=== PATIENT | female | born 1960 | race Native Hawaiian/Other Pacific Islander ===

== ENCOUNTER 2017-08-21 13:40 | Outpatient (CLI) | payer OTHER ==
[~2017-08-21 13:40] MED LIST: GABA300C2 PO; HYDR200T3 PO; LEVO0.0723 PO; PHENTERMINE37.5 MG OR
[2017-08-22 14:19] LABS: PLATELET COUNT 216 K/uL (152-353)
[2017-08-22 14:39] LABS: POTASSIUM 3.9 mmol/L (3.6-5.2)
== END 2017-08-21 16:00 | disposition home or self-care (01) ==
LOC: LABW 13:40
DX: M35.01 Sjogren syndrome with keratoconjunctivitis (principal)
CPT/HCPCS: 36415; 80053; 85027; 85651; 86140

== ENCOUNTER 2017-11-12 08:04 | Outpatient (CLI) | payer OTHER ==
[2017-11-12 11:21] LABS: PLATELET COUNT 219 K/uL (152-353)
[2017-11-12 11:37] LABS: POTASSIUM 4.2 mmol/L (3.6-5.2)
== END 2017-11-12 19:02 | disposition home or self-care (01) ==
LOC: LABW 08:04
PROVIDERS: Podiatrist
DX: Z01.810 Encounter for preprocedural cardiovascular examination (principal); Z01.811 Encounter for preprocedural respiratory examination; Z01.812 Encounter for preprocedural laboratory examination
CPT/HCPCS: 36415; 80053; 85027; 93005

== ENCOUNTER 2018-01-03 11:54 | Outpatient (CLI) | payer OTHER ==
[2018-01-03 12:50] LABS: PLATELET COUNT 213 K/uL (152-353)
[2018-01-03 13:37] LABS: POTASSIUM 3.5 mmol/L (3.6-5.2)
== END 2018-01-03 12:54 | disposition home or self-care (01) ==
LOC: LABW 11:54
PROVIDERS: Nurse Practitioner Family
DX: I78.1 Nevus, non-neoplastic (principal); M35.01 Sjogren syndrome with keratoconjunctivitis
CPT/HCPCS: 80053; 82085; 82550; 83516; 85027; 85651; 86039; 86140; 86225; 86235

== ENCOUNTER 2018-01-14 15:24 | Outpatient (CLI) | payer OTHER | END 2018-01-14 20:04 | disposition home or self-care (01) | LOC: LAB 15:24 | DX: I78.1 Nevus, non-neoplastic (principal) | CPT/HCPCS: 82575 ==

== ENCOUNTER 2018-06-19 07:57 | Outpatient (CLI) | payer OTHER ==
[2018-06-19 08:40] LABS: PLATELET COUNT 198 K/uL (152-353)
== END 2018-06-19 21:10 | disposition home or self-care (01) ==
LOC: LABW 07:57
PROVIDERS: Internal Medicine Rheumatology
DX: H16.223 Keratoconjunctivitis sicca, not specified as Sjogren's, bilateral (principal); M06.4 Inflammatory polyarthropathy; Z79.899 Other long term (current) drug therapy
CPT/HCPCS: 80053; 82180; 82784; 82785; 83516; 85027; 85651; 86140; 86160; 86255; 86704; 86706; 86803; 87340

== ENCOUNTER 2018-06-23 08:14 | Outpatient (CLI) | payer OTHER | END 2018-06-23 19:12 | disposition home or self-care (01) | LOC: LAB 08:14 | DX: H16.223 Keratoconjunctivitis sicca, not specified as Sjogren's, bilateral (principal); M06.4 Inflammatory polyarthropathy; Z79.899 Other long term (current) drug therapy | CPT/HCPCS: 82180 ==

== ENCOUNTER 2018-12-29 14:18 | Outpatient (CLI) | payer OTHER | END 2018-12-29 20:07 | disposition home or self-care (01) | LOC: LABW 14:18 | DX: E03.9 Hypothyroidism, unspecified (principal) | CPT/HCPCS: 36415; 82306; 84439; 84443 ==

== ENCOUNTER 2019-09-02 14:00 | Outpatient (CLI) | payer OTHER | END 2019-09-02 19:53 | disposition home or self-care (01) | LOC: MAMMO 14:00 | DX: Z12.31 Encounter for screening mammogram for malignant neoplasm of breast (principal) ==

== ENCOUNTER 2020-09-22 14:43 | Outpatient (CLI) | payer OTHER | END 2020-09-22 19:07 | disposition home or self-care (01) | LOC: MAMMO 14:43 | PROVIDERS: ATTEND Nurse Practitioner Family | DX: Z12.31 Encounter for screening mammogram for malignant neoplasm of breast (principal) ==

== ENCOUNTER → 2020-12-14 11:39 | Outpatient (CLI) | payer OTHER | END | disposition home or self-care (01) | LOC: RAD 11:39 | PROVIDERS: ATTEND Nurse Practitioner Family | DX: R05 Cough (principal); R06.02 Shortness of breath ==

== ENCOUNTER 2021-04-12 15:20 | Outpatient (CLI) | payer OTHER | END 2021-04-12 23:05 | disposition home or self-care (01) | LOC: CT 15:20 | PROVIDERS: ATTEND Otolaryngology Otolaryngology/Facial Plastic Surgery | DX: J32.0 Chronic maxillary sinusitis (principal); M27.61 Osseointegration failure of dental implant; G50.1 Atypical facial pain ==

== ENCOUNTER 2021-08-08 14:45 | Outpatient (CLI) | payer OTHER ==
[2021-08-08 15:08] LABS: PLATELET COUNT 239 K/uL (152-353)
== END 2021-08-08 19:31 | disposition home or self-care (01) ==
LOC: LAB 14:45
PROVIDERS: ATTEND Nurse Practitioner Family
DX: F32.9 Major depressive disorder, single episode, unspecified (principal); E03.9 Hypothyroidism, unspecified; F17.200 Nicotine dependence, unspecified, uncomplicated; F41.9 Anxiety disorder, unspecified; I10 Essential (primary) hypertension; F98.8 Other specified behavioral and emotional disorders with onset usually occurring in childhood and adolescence; M35.00 Sjogren syndrome, unspecified; Z79.899 Other long term (current) drug therapy
CPT/HCPCS: 80053; 80061; 82306; 82607; 83036; 84439; 84443; 85027

== ENCOUNTER 2021-10-03 15:28 | Outpatient (CLI) | payer OTHER | END 2021-10-03 19:07 | disposition home or self-care (01) | LOC: MAMMO 15:28 | PROVIDERS: ATTEND Nurse Practitioner Family | DX: Z12.31 Encounter for screening mammogram for malignant neoplasm of breast (principal) ==

== ENCOUNTER 2021-11-13 10:59 | Outpatient (CLI) | payer OTHER ==
[2021-11-13 11:07] LABS: PLATELET COUNT 202 K/uL (152-353)
[2021-11-13 11:25] LABS: POTASSIUM 3.9 mmol/L (3.6-5.2)
== END 2021-11-13 19:53 | disposition home or self-care (01) ==
LOC: LAB 10:59
PROVIDERS: ATTEND Family Medicine
DX: R10.13 Epigastric pain (principal)
CPT/HCPCS: 36415; 80053; 82150; 82550; 83690; 84484; 85027; 86677

== ENCOUNTER 2021-11-28 11:05 | Emergency (ER) | payer OTHER ==
[~2021-11-28] VITALS: Ht 156.2 cm; Wt 52.6 kg
[2021-11-28 11:16] VITALS: TEMP 97.7
[2021-11-28 11:32] LABS: PLATELET COUNT 265 K/uL (152-353)
[2021-11-28 11:40] LABS: POTASSIUM 3.6 mmol/L (3.6-5.2)
[2021-11-28 16:00] VITALS: BP 130/88
== END 2021-11-28 16:05 | disposition home or self-care (01) ==
LOC: ED 11:05
PROVIDERS: Emergency Medicine
DX: I49.8 Other specified cardiac arrhythmias (principal)
CPT/HCPCS: 36415; 80053; 84439; 84443; 84484; 85027; 93005; 99284

== ENCOUNTER 2021-11-29 11:04 | Outpatient (CLI) | payer OTHER | END 2021-11-29 18:48 | disposition home or self-care (01) | LOC: CT 11:04 | PROVIDERS: ATTEND Internal Medicine Cardiovascular Disease | DX: R07.9 Chest pain, unspecified (principal) ==

== ENCOUNTER 2021-12-26 15:50 | Outpatient (CLI) | payer OTHER | END 2021-12-26 18:58 | disposition home or self-care (01) | LOC: US 15:50 | PROVIDERS: ATTEND Internal Medicine Cardiovascular Disease | DX: R09.89 Other specified symptoms and signs involving the circulatory and respiratory systems (principal) ==

== ENCOUNTER 2022-05-01 17:59 | Outpatient (CLI) | payer OTHER ==
[2022-05-01 18:39] LABS: PLATELET COUNT 178 K/uL (152-353)
[2022-05-01 18:59] LABS: POTASSIUM 3.5 mmol/L (3.6-5.2)
== END 2022-05-01 20:41 | disposition home or self-care (01) ==
LOC: LAB 17:59
PROVIDERS: ATTEND Nurse Practitioner Family
DX: R19.7 Diarrhea, unspecified (principal); R10.9 Unspecified abdominal pain; F17.200 Nicotine dependence, unspecified, uncomplicated; F32.9 Major depressive disorder, single episode, unspecified; I10 Essential (primary) hypertension; F98.8 Other specified behavioral and emotional disorders with onset usually occurring in childhood and adolescence; E03.9 Hypothyroidism, unspecified; F41.9 Anxiety disorder, unspecified; M35.00 Sjogren syndrome, unspecified; Z82.49 Family history of ischemic heart disease and other diseases of the circulatory system; M25.40 Effusion, unspecified joint; Z79.899 Other long term (current) drug therapy
CPT/HCPCS: 80053; 80061; 82306; 82607; 82746; 83036; 83540; 83735; 84439; 84443; 85027

== ENCOUNTER 2022-05-02 08:36 | Outpatient (CLI) | payer OTHER | END 2022-05-02 18:53 | disposition home or self-care (01) | LOC: LAB 08:36 | PROVIDERS: ATTEND Nurse Practitioner Family | DX: R19.7 Diarrhea, unspecified (principal); R10.9 Unspecified abdominal pain | CPT/HCPCS: 82272; 83630; 87324; 87328; 87329; 87449 ==